=== PATIENT | female | born 1950 | race Hispanic/Latino ===

== ENCOUNTER 2017-01-05 09:19 | Outpatient (CLI) | payer OTHER, MEDICARE ==
--- NOTE | 2017-01-06 09:31 | Vascular Lab Report ---
LOWER EXTREMITY VENOUS DUPLEX: REASON FOR EXAM: Swelling of the lower extremities. COMMENTS ON THE RIGHT: All veins visualized are freely compressible without evidence of internal echogenicity. Flow is spontaneous and phasic throughout. COMMENTS ON THE LEFT: All veins visualized are freely compressible without evidence of internal echogenicity. Flow is spontaneous and phasic throughout. IMPRESSION: No evidence of acute or chronic deep venous thrombosis in either lower extremity.
== END 2017-01-05 09:20 | disposition home or self-care (01) ==
LOC: VAS 09:19
PROVIDERS: ATTEND Internal Medicine
DX: I87.8 Other specified disorders of veins (principal); M79.89 Other specified soft tissue disorders
CPT/HCPCS: 93970